=== PATIENT | female | born 1940 | race African-American/Black ===

== ENCOUNTER 2017-04-20 08:41 | Emergency (ER) | payer MEDICARE, OTHER ==
[~2017-04-20] VITALS: Ht 152.4 cm; Wt 52.2 kg
[~2017-04-20 08:41] MED LIST: ACETAMINOPHEN-1 EAC1 ORAL; ALBUTEROL SULF8.5 GM INH; ASPIRIN81 M1 PO; AZITHROMYCIN250 MG ORAL; AZITHROMYCIN250 MG PO; BACTRIM DS TAB1 EAC1 ORAL; CIPROFLOXACIN500 M2 ORAL; COLACE100 MG ORAL; CYCLOBENZAPRINE10 MG ORAL; GUAIFENESIN-CO118 M1 ORAL; KEFLEX500 MG ORAL; KEFLEX500 MG PO; LEVAQUIN500 MG ORAL; PHENAZOPYRIDIN200 MG ORAL; PREDNISONE20 MG ORAL; PROAIR HFA8.5 GM IH; SINGULAIR10 MG ORAL; SINGULAIR10 MG PO; VALIUM5 MG ORAL; VALIUM5 MG PO; VENTOLIN HFA18 GM INH
[2017-04-20 08:51] VITALS: BP 131/72
[2017-04-20] MEDS ORDERED: Albuterol/Ipratropium 3ml neb HHN ONE (09:00)
--- NOTE | 2017-04-20 09:12 | Emergency Room Report ---
History of Present Illness General Chief Complaint: Upper Respiratory Illness Source: Patient, Medical Record Present Illness HPI Patient is a 76-year-old female who presents after increased cough and difficulty breathing. Patient gradual onset of symptoms. Patient reports having prior history of COPD. Patient states that she had been having symptoms for approximately 4 days. She states that she had been treated previously for hepatitis C as well. She had gradual onset of symptoms. She denies any fever. She had not been having any productive cough. Allergies: Coded Allergies: METHYLPREDNISOLONE SOD SUCC (Verified Allergy, Intermediate, Hives, ) IODINE (Verified Allergy, Unknown, 03/28/16) Patient History Past Medical History: see triage record Reviewed Nursing Documentation: PMH: Agreed, PSxH: Agreed Nursing Documentation-PMH Past Medical History: No History, Except For Hx Cardiac Problems: No Hx Hypertension: No Hx Pacemaker: No Hx Asthma: Yes Hx COPD: No Hx Diabetes: No Hx Cancer: No Hx Gastrointestinal Problems: No Hx Dialysis: No Hx Neurological Problems: Yes - stroke, back problem Hx Cerebrovascular Accident: No Hx Seizures: No Review of Systems All Other Systems: negative except mentioned in HPI Physical Exam Vital Signs Date Time Temp Pulse Resp B/P (MAP) Pulse Ox O2 Delivery O2 Flow Rate FiO2 04/20/17 08:44 83 16 131/72 97 Room Air Sp02 EP Interpretation: reviewed, normal General Appearance: normal inspection, well appearing, no apparent distress, alert, GCS 15 Head: atraumatic ENT: normal ENT inspection, hearing grossly normal, normal voice Neck: normal inspection, full range of motion, supple, no bony tend Respiratory: normal inspection, lungs clear, normal breath sounds, no respiratory distress, no retraction, no wheezing Cardiovascular #1: regular rate, rhythm, no edema Gastrointestinal: normal inspection, normal bowel sounds, non tender, soft, no guarding, no hernia Genitourinary: no CVA tenderness Musculoskeletal: normal inspection, back normal, normal range of motion Neurologic: normal inspection, alert, oriented x3, responsive, [employer]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 Differential included but was not limited to anemia, pneumonia, pneumothorax, myocardial infarction, pericardial effusion, congestive heart failure, acidosis. Patient's benign exam and does not appear to require any further imaging at this time. the patient was given a breathing treatment. Patient given prescription for prednisone. Chest x-ray showed no evident infiltrate. The patient is advised to follow up with primary care doctor in 1-2 days. Patient is advised to return if any worsening condition or if any changes in status that are concerning. Last Vital Signs Date Time Temp Pulse Resp B/P (MAP) Pulse Ox O2 Delivery O2 Flow Rate FiO2 04/20/17 08:51 83 16 131/72 97 Room Air Status: improved Disposition: HOME, SELF-CARE Condition: Stable Scripts Prednisone* (PREDNISONE*) 20 Mg Tablet 20 MG ORAL DAILY, #10 TAB 0 Refills Prov: Trevor Felix 04/20/17 Albuterol Sulfate* (ALBUTEROL SULFATE MDI*) 8.5 Gm Hfa.aer.ad 2 PUFF INH Q6H for Shortness of Breath, #1 EA 0 Refills Prov: Trevor Felix 04/20/17 Referrals: NON PHYSICIAN (PCP) Trevor Felix Apr 20, 2017 09:12
[2017-04-20] MEDS ORDERED: ALBUTEROL SULF8.5 GM INH (09:22)
[2017-04-20] MEDS ORDERED: PREDNISONE20 MG ORAL (09:22)
[2017-04-20 09:40] VITALS: BP 132/72
--- NOTE | 2017-04-20 10:06 | Diagnostic Imaging Report ---
Indication: Shortness of breath Technique: XRAY CHEST 1 V Comparison: 06/20/15 Findings: The cardiomediastinal silhouette is within normal limits. There is no focal consolidation, pneumothorax or pleural effusion. Osseous structures demonstrate no acute abnormality. Impression: No acute cardiopulmonary disease.
== END 2017-04-20 09:49 | disposition home or self-care (01) ==
LOC: EMR 09:09
DX: J44.1 Chronic obstructive pulmonary disease with (acute) exacerbation (principal); Z88.8 Allergy status to other drugs, medicaments and biological substances
CPT/HCPCS: 71010; 94640; 94664; 99284; J7620

== ENCOUNTER 2017-05-12 21:07 | Emergency (ER) | payer MEDICARE, OTHER ==
[~2017-05-12] VITALS: Ht 157.5 cm; Wt 53.5 kg
[2017-05-12 21:20] VITALS: BP 128/80
[2017-05-12 21:26] VITALS: BP 132/78
--- NOTE | 2017-05-12 21:37 | Emergency Room Report ---
History of Present Illness General Chief Complaint: Chest Pain Source: Patient Present Illness HPI Is a 76-year-old female with history of COPD patient presents with chief complaint of chest pain that started this afternoon. This occurred after she lifted up her walker. Pain is on the right upper chest area. Worse with palpation. No nausea no vomiting. No exertional component. She does complain shows of breath which is a chronic issue for her. No fever or chills but no diaphoresis. Allergies: Coded Allergies: METHYLPREDNISOLONE SOD SUCC (Verified Allergy, Intermediate, Hives, ) IODINE (Verified Allergy, Unknown, 03/28/16) Patient History Past Medical History: see triage record, old chart reviewed, COPD Past Surgical History: other Pertinent Family History: none Social History: Denies: smoking - History of Now: No Immunizations: other Reviewed Nursing Documentation: PMH: Agreed, PSxH: Agreed Nursing Documentation-PMH Past Medical History: No History, Except For Hx Cardiac Problems: No Hx Hypertension: Yes Hx Pacemaker: No Hx Asthma: Yes Hx COPD: No Hx Cancer: No Hx Gastrointestinal Problems: No Hx Dialysis: No Hx Neurological Problems: Yes - stroke, back problem Hx Cerebrovascular Accident: Yes - 1986 Hx Seizures: No Review of Systems Eye: Denies: eye pain, blurred vision ENT: Denies: ear pain, nose congestion, throat swelling Respiratory: Denies: cough, shortness of breath Cardiovascular: Reports: chest pain, Denies: palpitations Gastrointestinal: Denies: abdominal pain, diarrhea, nausea, vomiting Musculoskeletal: Denies: back pain, joint pain Skin: Denies: rash Neurological: Denies: headache, numbness Endocrine: Denies: increased thirst, increased urine Hematologic/Lymphatic: Denies: easy bruising All Other Systems: negative except mentioned in HPI Physical Exam Vital Signs Date Time Temp Pulse Resp B/P (MAP) Pulse Ox O2 Delivery O2 Flow Rate FiO2 05/12/17 21:11 97.7 82 16 137/80 98 Room Air vitals normal Sp02 EP Interpretation: reviewed, normal General Appearance: thin Head: normocephalic, atraumatic Eyes: bilateral eye PERRL, bilateral eye EOMI ENT: hearing grossly normal, normal pharynx Neck: full range of motion, supple, no meningismus Respiratory: lungs clear, normal breath sounds, other - Chest tenderness with palpation on right upper chest Cardiovascular #1: regular rate, rhythm, no murmur Gastrointestinal: normal bowel sounds, non tender, no mass, no organomegaly, no bruit, non-distended Musculoskeletal: back normal, gait/station normal, normal range of motion Psychiatric: mood/affect normal Skin: warm/dry Medical Decision Making Diagnostic Impression: Primary Impression: Chest pain Qualified Codes: R07.9 - Chest pain, unspecified Additional Impression: COPD exacerbation ER Course Patient with atypical chest pain. It is reproducible. She refuses any blood draw. EKG is unremarkable. Based on her age and risk factor, it would be prudent to check blood work and possible admission. Patient refuses. She is competent to make that decision. This most likely muscle skeletal pain but I cannot rule out CAD or ACS without further workup. She is competent to refuse. We'll discharge home AMA. EKG Diagnostic Results Rate: normal Rhythm: NSR ST Segments: other - NSST changes Rhythm Strip Diag. Results Rhythm Strip Time: 21:37 EP Interpretation: yes Rate: 70 Rhythm: NSR Chest X-Ray Diagnostic Results Chest X-Ray Diagnostic Results : Chest X-Ray Ordered: Yes # of Views/Limited/Complete: 1 View Indication: Chest Pain EP Interpretation: Yes Interpretation: no consolidation, no effusion, no pneumothorax Impression: No acute disease Electronically Signed by: Electronically signed by Hakeem Sanchez MD Last Vital Signs Date Time Temp Pulse Resp B/P (MAP) Pulse Ox O2 Delivery O2 Flow Rate FiO2 05/12/17 21:26 97.9 80 16 132/78 100 Room Air Status: improved Disposition: AGAINST MEDICAL ADVICE Condition: Stable Patient Instructions: Nonspecific Chest Pain Additional Instructions: Followup with your DrHenri in 2-3 days. Return if you change your mind. HAKEEM SANCHEZ M.D. May 12, 2017 21:37
[2017-05-12] MEDS ORDERED: Ketorolac 30mg Inj IV ONE (21:45)
[2017-05-12] MEDS ORDERED: Albuterol ud Inhalation HHN ONE (21:45)
[2017-05-12 22:30] VITALS: BP 132/78
--- NOTE | 2017-05-13 10:52 | Diagnostic Imaging Report ---
Indication: SOB Technique: One view of the chest Comparison: 04/20/2017 Findings: The left hemidiaphragm is elevated. The aorta is elongated and calcified. Lungs and pleural spaces are clear. Findings are unchanged Impression: No acute process
--- NOTE | 2017-05-16 18:00 | Cardiology Report ---
APPROVED REPORT EKG Measurement Heart [id number] VT [id number] [id number] Normal sinus rhythm Nonspecific T wave abnormality Abnormal ECG
== END 2017-05-12 22:30 | disposition left against medical advice (07) ==
LOC: EMR 22:16
DX: R07.89 Other chest pain (principal); J44.1 Chronic obstructive pulmonary disease with (acute) exacerbation; I10 Essential (primary) hypertension; Z86.73 Personal history of transient ischemic attack (TIA), and cerebral infarction without residual deficits; Z88.8 Allergy status to other drugs, medicaments and biological substances
CPT/HCPCS: 71010; 93005; 94640; 99283

== ENCOUNTER 2017-09-28 03:48 | Emergency (ER) | payer MEDICARE, OTHER ==
[~2017-09-28] VITALS: Ht 162.6 cm; Wt 59.0 kg
--- NOTE | 2017-09-28 04:26 | Emergency Room Report ---
History of Present Illness General Chief Complaint: Skin Rash/Abscess Source: Patient Present Illness HPI Is a 77-year-old female who is right-hand dominant. She presents with swelling and pain in the left ring finger. Onset last night. No trauma. Pain is 8 out of 10. Worse with palpation. Denies any nausea vomiting. Denies any fever chills. Allergies: Coded Allergies: METHYLPREDNISOLONE SOD SUCC (Verified Allergy, Intermediate, Hives, ) IODINE (Verified Allergy, Unknown, 03/28/16) Patient History Past Medical History: see triage record, old chart reviewed Past Surgical History: other Pertinent Family History: none Social History: Reports: smoking Now: No Immunizations: other Reviewed Nursing Documentation: PMH: Agreed, PSxH: Agreed Nursing Documentation-PMH Hx Cardiac Problems: No Hx Hypertension: Yes Hx Pacemaker: No Hx Asthma: Yes Hx COPD: No Hx Cancer: No Hx Gastrointestinal Problems: No Hx Dialysis: No Hx Neurological Problems: Yes - stroke, back problem Hx Cerebrovascular Accident: Yes - 1986 Hx Seizures: No Review of Systems Eye: Denies: eye pain, blurred vision ENT: Denies: ear pain, nose congestion, throat swelling Respiratory: Denies: cough, shortness of breath Cardiovascular: Denies: chest pain, palpitations Gastrointestinal: Denies: abdominal pain, diarrhea, nausea, vomiting Musculoskeletal: Reports: muscle pain, Denies: back pain, joint pain Skin: Denies: rash Neurological: Denies: headache, numbness Endocrine: Denies: increased thirst, increased urine Hematologic/Lymphatic: Denies: easy bruising All Other Systems: negative except mentioned in HPI Physical Exam Vital Signs Date Time Temp Pulse Resp B/P (MAP) Pulse Ox O2 Delivery O2 Flow Rate FiO2 09/28/17 04:11 98.0 75 16 140/70 98 Room Air 98.1 vitals normal Sp02 EP Interpretation: reviewed, normal General Appearance: well appearing, no apparent distress, alert Head: normocephalic, atraumatic Eyes: bilateral eye PERRL, bilateral eye EOMI ENT: hearing grossly normal, normal pharynx Neck: full range of motion, supple, no meningismus Respiratory: chest non-tender, lungs clear, normal breath sounds Cardiovascular #1: regular rate, rhythm, no murmur Gastrointestinal: normal bowel sounds, non tender, no mass, no organomegaly, no bruit, non-distended Musculoskeletal: back normal, gait/station normal, normal range of motion, other - Left ring finger: She has a paronychia on the ulnar aspect of the nail. There is some tenderness to the pad. Psychiatric: mood/affect normal Skin: warm/dry Procedures Incision and Drainage Incision and Drainage : Consent: Verbal Site: left ring finger Blade Size: 11 I & D Procedure: betadine prep Wound Location: upper extremity Patient Tolerated: Well Complications: None Progress Using 11 blade scalpel, I ran it along the nail on the ulnar aspect. There was moderate amount of pus expressed. Patient tolerated procedure without a problem. Medical Decision Making Diagnostic Impression: Primary Impression: Paronychia of left ring finger ER Course She presents with a paronychia of the left finger. No felon. No foreign body. Better now. We'll discharge home. Last Vital Signs Date Time Temp Pulse Resp B/P (MAP) Pulse Ox O2 Delivery O2 Flow Rate FiO2 09/28/17 04:11 98.0 75 16 140/70 98 Room Air 98.1 Status: improved Disposition: HOME, SELF-CARE Condition: Stable Scripts Doxycycline Monohydrate* (DOXYCYCLINE MONOHYDRATE*) 100 Mg Capsule 100 MG ORAL Q12H, #14 CAP 0 Refills Prov: CHANCE IZAGUIRRE M.D. 09/28/17 Additional Instructions: Follow-up with your DrHenri in 2 to 3 days for recheck. Keep wound clean. Return it worse. CHANCE IZAGUIRRE M.D. Sep 28, 2017 04:26
[2017-09-28 04:27] VITALS: BP 140/70
[2017-09-28] MEDS ORDERED: DOXYCYCLINE MO100 MG ORAL (04:35)
[2017-09-28] MEDS ORDERED: Tylenol #3 tab (300mg/30mg) ORAL ONE (04:45)
[2017-09-28 05:00] VITALS: BP 140/70
== END 2017-09-28 05:00 | disposition home or self-care (01) ==
LOC: EMR 04:55
DX: L03.012 Cellulitis of left finger (principal); I10 Essential (primary) hypertension; J45.909 Unspecified asthma, uncomplicated; Z79.83 Long term (current) use of bisphosphonates; Z88.8 Allergy status to other drugs, medicaments and biological substances; Z91.041 Radiographic dye allergy status
CPT/HCPCS: 10060; 99284